=== PATIENT | female | born 1930 | race Caucasian/White ===

== ENCOUNTER 2019-01-10 15:30 | Emergency (ER) | payer MEDICARE, BC ==
[~2019-01-10] VITALS: Ht 160 cm; Wt 58.0 kg
--- NOTE | 2019-01-10 15:40 | NUR ---
DR BEAL NOTIFIED OF FALL WHILE ON ELIQUIS. ORDERS RECIEVED
--- NOTE | 2019-01-10 18:47 | NUR ---
PT PLACED [facility], BP NOW 160/68 AWAITING ER MD.
--- NOTE | 2019-01-10 19:19 | NUR ---
UP TO BR WITH STEADY SLOW GAIT.
--- NOTE | 2019-01-10 20:02 | NUR ---
PT RETURNED FROM RIGHT RIB AND SHOUDER XRAY
[2019-01-10] MEDS ORDERED: CYCL-1 PO (20:05)
[2019-01-10] MEDS ORDERED: cyclobenzaprine 10mg tablet PO ONE (20:05)
--- NOTE | 2019-01-10 20:06 | NUR ---
dr neri talking with pt about discharge. remains at bedside. bp 170/68
[2019-01-10 20:09] VITALS: BP 170/69
== END 2019-01-10 20:21 | disposition home or self-care (01) ==
LOC: ER 15:31
DX: S20.211A Contusion of right front wall of thorax, initial encounter (principal); S40.021A Contusion of right upper arm, initial encounter; I10 Essential (primary) hypertension; Z88.8 Allergy status to other drugs, medicaments and biological substances; Z79.899 Other long term (current) drug therapy; W19.XXXA Unspecified fall, initial encounter; Y93.01 Activity, walking, marching and hiking; Y92.89 Other specified places as the place of occurrence of the external cause; Y99.8 Other external cause status
CPT/HCPCS: 70450; 71046; 71100; 73060; 99284